=== PATIENT | female | born 1945 | race Caucasian/White ===

== ENCOUNTER 2021-11-21 11:02 | Inpatient (IN) | payer OTHER ==
[~2021-11-21] VITALS: Ht 157.5 cm; Wt 81.7 kg
[2021-11-21 11:08] VITALS: BP 197/80
[2021-11-21] MEDS ORDERED: HYDROCODON-ACE1 EAC7 PO (11:24)
[2021-11-21 12:28] LABS: URINE BILIRUBIN NEGATIVE (Negative); URINE BLOOD 3+ (Negative); URINE COLOR YELLOW; URINE GLUCOSE-RANDOM NEGATIVE (Negative); URINE KETONES NEGATIVE (Negative); URINE LEUKOCYTES-REFLEX NEGATIVE (Negative); URINE NITRITE-REFLEX NEGATIVE (Negative); URINE PROTEIN NEGATIVE (Negative); URINE UROBILINOGEN 0.2 E.U./dl (0.2-1.0)
[2021-11-21 12:29] LABS: HEMATOCRIT 36.7 % (37.0-47.0); MCH 29.3 pg (26.0-34.0); MCHC 32.8 g/dL (28.0-37.0); MCV 89.5 fL (80.0-100.0); MPV 6.8 fl. (7.2-11.1); NUCLEATED RBCS 0 /100WBC; PLATELET COUNT* 330 thou/uL (150-400); RDW-CV 15.2 % (10.5-14.5); WBC 7.9 thou/uL (4.0-11.0)
[2021-11-21 12:35] LABS: URINE CLARITY HAZY
[2021-11-21 12:36] LABS: AMP/METHAMP Negative (Negative); BARBITURATES Negative (Negative); BENZODIAZEPINES Negative (Negative); COCAINE Negative (Negative); METHADONE Negative (Negative); OPIATES POSITIVE (Negative); PCP Negative (Negative); THC Negative (Negative)
[2021-11-21 12:46] LABS: BACTERIA-REFLEX None Seen /HPF (None Seen); CASTS None Seen /LPF (None Seen); CRYSTALS None Seen /LPF (None Seen); SQUAMOUS 0-3 Few /LPF (0-3); URINE RBC 3-10 Few /HPF (0-2); URINE WBC-REFLEX None Seen /HPF (0-5)
[2021-11-21 12:54] LABS: ALBUMIN 3.8 g/dL (3.4-5.0); CK-MB MASS 0.8 ng/mL (<0.5-3.6); TOTAL BILIRUBIN 0.4 mg/dL (<0.1-1.0); TOTAL PROTEIN 7.6 g/dL (6.4-8.2)
[2021-11-21 12:59] LABS: ALCOHOL < 10 mg/dL (<10); SALICYLATE < 2.8 mg/dL (2.8-20.0)
[2021-11-21 13:00] LABS: ACETAMINOPHEN < 2 ug/mL (10-30)
[2021-11-21 13:02] LABS: ABSOLUTE LYMPHOCYTES 0.7 thou/uL (0.8-5.3); ABSOLUTE MONOCYTES 0.1 thou/uL (0.0-1.2); ABSOLUTE NEUTROPHILS 7.1 thou/uL (1.6-8.1); PLATELET ESTIMATE ADEQUATE
[2021-11-21] MEDS ORDERED: LEVO-T25 MCG PO (13:58)
[2021-11-21] MEDS ORDERED: ALLOPURINOL 10100 M1 PO (13:58)
[2021-11-21] MEDS ORDERED: b/p med (13:59)
[2021-11-21] MEDS ORDERED: cholesterol med (13:59)
[2021-11-21 15:59] LABS: BE 0.3 mmol/L (-2 to +3); PCO2 30.8 mmHg (35.0-45.0); PO2 69.2 mmHg (75.0-100.0); pH 7.491 (7.340-7.450)
--- NOTE | 2021-11-21 16:26 | 2DMMODE ---
[place] [address] 2 D/M-MODE ECHOCARDIOGRAM Name: MARLYN KEITH Room: [address] IN .R.#: [id number] Admission: 11/21/21 Attend Phys: Brie Haines, Discharge: Date of : 47 Date of Service: 11/21/21 1626 Report #: [id number] THIS REPORT FOR: cc: Leonid Mancera MD, Michael S. MD Holkins, John M. MD [facility] ~ APPROVED REPORT Study performed: 11/21/2021 15:49:38 EXAM: Comprehensive 2D, Doppler, and color-flow Echocardiogram Patient Location: In-Patient Room #: ER Status: routine BSA: 1.83 HR: 107 bpm BP: 156/59 mmHg Rhythm: NSR Other Information Study Quality: Good Indications Elevated Troponin 2D Dimensions IVSd: 10.50 (7-11mm) LVDd: 51.47 mm PWd: 10.21 (7-11mm) Ascending Ao: 28.34 (22-36mm) LVDs: 30.89 (25-40mm) Aortic Root: 30.19 mm Volumes Left Atrial Volume (Systole) LA ESV Index: 36.50 mL/m2 Aortic Valve AoV Peak Smith.: 1.78 m/s AO Peak Gr.: 12.74 mmHg LVOT Max P.82 mmHg AO Mean Gr.: 7.44 mmHg LVOT Mean P.07 mmHg LVOT Max V: 1.31 m/s AO V2 VTI: 36.43 cm LVOT Mean V: 0.79 m/s LVOT V1 VTI: 26.89 cm AI [place]: 2.62 m/s2 [place] [address] 2 D/M-MODE ECHOCARDIOGRAM Name: MARLYN KEITH E Room: [address] [place] .R.#: [id number] Admission: 11/21/21 Attend Phys: Brie Haines, Discharge: Date of : 47 Date of Service: 11/21/21 1626 Report #: [id number] AI PHT: 413.69 ms Mitral Valve E/A Ratio: 1.04 MV Decel. Time: 163.68 ms MV E Max Smith.: 0.99 m/s MV PHT: 47.47 ms MVA (PHT): 4.63 cm2 TDI E/Lateral E': 9.00 E/Medial E': 12.38 Medial E' Smith.: 0.08 m/s Lateral E' Smith.: 0.11 m/s Pulmonary Valve PV Peak Smith.: 1.48 m/s PV Peak Gr.: 8.71 mmHg Left Ventricle The left ventricle is normal size. There is normal LV segmental wall motion. There is normal left ventricular wall thickness. Left ventricular systolic function is normal. The left ventricular ejection fraction is within the normal range. LVEF is 65%. The left ventricular diastolic function is normal. Right Ventricle The right ventricle is normal size. The right ventricular systolic function is normal. Atria Left atrium is mildly dilated. The right atrium size is normal. Aortic Valve Mild aortic valve sclerosis. Mild aortic regurgitation. There is no aortic valvular stenosis. Mitral Valve The mitral valve is normal in structure. Trace mitral regurgitation. No evidence of mitral valve stenosis. Tricuspid Valve The tricuspid valve is normal in structure. Unable to assess PA pressure. Trace tricuspid regurgitation. Pulmonic Valve The pulmonary valve is normal in structure. [place] [address] 2 D/M-MODE ECHOCARDIOGRAM Name: MARLYN KEITH Room: [address] IN [facility]#: [id number] Admission: 11/21/21 Attend Phys: Brie Haines, Discharge: Date of : 47 Date of Service: 11/21/21 1626 Report #: [id number] valvular regurgitation. Great Vessels The aortic root is normal in size. IVC is normal in size and collapses >50% with inspiration. Pericardium There is no pericardial effusion. <Conclusion> The left ventricle is normal size. There is normal left ventricular wall thickness. Left ventricular systolic function is normal. The left ventricular ejection fraction is within the normal range. LVEF is 65%. The right ventricle is normal size. Left atrium is mildly dilated. Mild aortic valve sclerosis. Mild aortic regurgitation. There is no aortic valvular stenosis. The mitral valve is normal in structure. The tricuspid valve is normal in structure. IVC is normal in size and collapses >50% with inspiration. There is no pericardial effusion. There is normal LV segmental wall motion. <ELECTRONICALLY SIGNED> By: Christiano German MD, FACC 11/21/21 1626 1626 1626 Christiano German MD, FACC /INF
[2021-11-21 17:28] VITALS: BP 154/49
[2021-11-22] VITALS: BP 142/44
[2021-11-22 04:00] VITALS: BP 112/58
--- NOTE | 2021-11-22 05:11 | NUR ---
PT STARTED SHIFT SEDATED AND DROWSY, SHE SLEPT MOST OF THE PM SHIFT ONLY TO AWAKEN AT 0400 WHEN LAB WENT IN WITH PT NEEDING TO USE THE RESTROOM. SHE WAS PLACED ON BEDPAN BUT HAD ALREADY HAD A BM. STOOL WAS LIGHT BROWN FROTHY AND SMELLED FISHY. PT STATES SHE HAS NOT BEEN ON ANTIBIOTICS RECENTLY. SHE WAS ABLE TO ANSWER ALL OREINTATION QUESTIONS WITHOUT DIFFICULTY. FLUIDS AND MEDS INFUSING PER ORDER. CALL LIGHT IN REACH FOR PT SAFETY.
[2021-11-22 06:00] LABS: HEMOGLOBIN 12.3 gm/dL (12.0-15.0); MCH 28.6 pg (26.0-34.0); MCHC 32.3 g/dL (28.0-37.0); MCV 88.5 fL (80.0-100.0); MPV 6.9 fl. (7.2-11.1); RBC 4.29 mil/uL (4.20-5.00); WBC 6.9 thou/uL (4.0-11.0)
[2021-11-22 06:30] LABS: ALBUMIN 3.1 g/dL (3.4-5.0); CALCIUM 8.2 mg/dL (8.5-10.1); CREATININE 0.9 mg/dL (0.6-1.3); MAGNESIUM 1.8 mg/dL (1.8-2.4); POTASSIUM 3.2 mmol/L (3.5-5.1); TOTAL BILIRUBIN 0.6 mg/dL (<0.1-1.0); TOTAL PROTEIN 6.2 g/dL (6.4-8.2)
[2021-11-22 08:00] VITALS: BP 136/55
--- NOTE | 2021-11-22 10:58 | EKG ---
[place] [address] ELECTROCARDIOGRAM REPORT Name: MARLYN KEITH Room: [address] IN [facility].#: [id number] Admission: 11/21/21 Attend Phys: Brie Haines, Discharge: Date of : 47 Date of Service: 11/21/21 1151 Report #: [id number] THIS REPORT FOR: //name// [facility] ED Test Date: 2021-11-21 Test Time: 11:51:19 Pat Name: MARLYN KEITH Department: Room: [facility] Gender: F Hearing Stenographer: TRESA : 1945 Requested By: Wilfred Hackett Order Number: [id number] MD: Christiano German Measurements Intervals [place] Rate: 132 P: 59 NM: 136 QRS: 47 QRSD: 85 T: 66 QT: 281 QTc: 417 Interpretive Statements Sinus tachycardia Low voltage, extremity leads Diffuse nonspecific ST-T alterations; anterolateral ischemia must be considered Baseline wander in lead(s) I,II,III,aVR,aVL,aVF,V2,V4,V5 No previous ECG available for comparison Electronically Signed On 11-22-2021 10:58:21 ART SPECIALIST by Christiano German [email or web address] <ELECTRONICALLY SIGNED> By: Christiano German MD, [facility] 11/22/21 1058 1151 1151 Christiano German MD, [facility] /EPI
[2021-11-22 12:00] VITALS: BP 141/60
[2021-11-22 17:29] VITALS: BP 167/50
--- NOTE | 2021-11-22 17:45 | NUR ---
AT 1630, NURSE MARISOL AND NURSE STEPHANIE ASKED PATIENT ALL ORIENTATION QUESTIONS BEFORE SHE SIGNED THE AMA FORM. PATIENT WAS COMPLETELY ORIENTED AND ANSWERED ALL QUESTIONS CORRECTLY. PATIENT WAS OF SOUND MIND AND EXPLAINED HER UNDERSTANDING OF THE AMA PAPERWORK AND TOLD US THAT SHE WANTED TO LEAVE AND GO TO [facility] ON THE [address] FOR FOLLOW UP CARE.
--- NOTE | 2021-11-22 18:35 | NUR ---
Pt daughter arrived the unit for visit and came out of the pt's room and told this nurse that the pt was confused and having difficulties communicating. Mike Gifford went in and assessed the pt and put in a start CT. Pt's valhter want pt to be transfer to a [facility] hospital that she might be having a stroke. House supervior was notify and pt sign the AMA papers . Pt was alert and orinted x4, BP 167/50,HR 89, RR 18, Tem 101.4. Nurse gave pt 650 of tylenol about 1725 before she was transported by staff on the wheelchair accompanied by her daughter .
--- NOTE | 2021-11-24 15:56 | EKG ---
[place] [address] ELECTROCARDIOGRAM REPORT Name: MARLYN KEITH Room: [address] IN [facility].#: [id number] Admission: 11/21/21 Attend Phys: Brie Haines, Discharge: 11/22/21 Date of : 47 Date of Service: 11/22/21 1003 Report #: [id number] THIS REPORT FOR: //name// [facility] Test Date: 2021-11-22 Test Time: 10:03:43 Pat Name: MARLYN KEITH Department: Room: [address] Gender: F Resident Engineer: SHALA : 1945 Requested By: Lisa Armijo Order Number: [id number] Hari MD: Franko Anand Measurements Intervals [place] Rate: 63 P: -9 GA: 179 QRS: 28 QRSD: 93 T: 36 QT: 466 QTc: 478 Interpretive Statements Sinus rhythm Compared to ECG 11/21/2021 11:51:19 Sinus tachycardia no longer present Possible ischemia no longer present Electronically Signed On 11-24-2021 15:56:26 MANAGER TRANSPORTATION by Franko Anand [email or web address] <ELECTRONICALLY SIGNED> By: Franko Anand MD, [facility] 11/24/21 1556 1003 1003 Franko Anand MD, [facility] /EPI
== END 2021-11-22 17:30 | disposition home or self-care (01) | DRG 917 ==
LOC: M.ERS 11:02 → M.TBA-ER 14:39 → M.2W 17:59
PROVIDERS: Family Medicine; ADMIT Internal Medicine; ATTEND Internal Medicine
DX: T40.2X1A Poisoning by other opioids, accidental (unintentional), initial encounter (principal); G92.8 Other toxic encephalopathy; F11.20 Opioid dependence, uncomplicated; E87.2 Acidosis; G43.909 Migraine, unspecified, not intractable, without status migrainosus; Z53.29 Procedure and treatment not carried out because of patient's decision for other reasons; I10 Essential (primary) hypertension; Z20.822 Contact with and (suspected) exposure to COVID-19; Z88.6 Allergy status to analgesic agent; Z88.8 Allergy status to other drugs, medicaments and biological substances; Y92.89 Other specified places as the place of occurrence of the external cause; Z86.73 Personal history of transient ischemic attack (TIA), and cerebral infarction without residual deficits